=== PATIENT | male | born 1940 | race Caucasian/White ===

== ENCOUNTER 2016-05-21 06:56 | Day surgery (SDC) | payer MEDICARE ==
[~2016-05-21] VITALS: Ht 190.5 cm; Wt 120.2 kg
[~2016-05-21 06:56] MED LIST: ACYCLOVIR800 MG PO; ALDACTONE25 MG PO; ANTIBIOTIC; CARVEDILOL3.125 MG PO; CARVEDILOL6.25 MG PO; CIPRO XR500 MG PO; CIPROFLOXACIN250 MG PO; CIPROFLOXACN250 MG PO; COREG12.5 MG PO; COREG3.125 MG PO; COUMADIN2.5 MG PO; COUMADIN3 MG PO; COUMADIN4 MG PO; DILAUDID 2MG2 MG/TA1 PO; DILTIAZEM120 M2 PO; FUROSEMIDE40 MG PO; HYDROCHLOROT25 MG PO; KEFLEX500 MG PO; LASIX 40 MG40 MG/TAB PO; LISINOPRIL2.5 MG PO; LORTAB 10-325 M1 TAB PO; LORTAB5 PO; LOTENSIN HCT1 TAB PO; LOTRISONE EX; MIRALAX3350 N1 PO; MULTI VIT PO; NAPROSYN500 MG PO; NAPROXEN250 MG PO; NYSTATIN TOP; STERAPRED DS10 MG PO; TAMSULOSIN HCL0.4 MG PO; TERAZOSIN1 MG PO; TET/DIP TOX1 ML IM; TORADOL30 MG/VIAL IM; TRAMADOL HCL50 MG PO; ULTRAM50 M1 PO; WARFARIN3 MG PO; WARFARIN6 MG PO; ZESTRIL/PRINIV2.5 MG PO
[2016-05-21 11:53] VITALS: BP 92/58
== END 2016-05-21 11:50 | disposition home or self-care (01) ==
LOC: ORM 06:56
PROVIDERS: ATTEND Surgery
PROC: 0HB6XZX Excision of Back Skin, External Approach, Diagnostic (ICD-10-PCS; principal; 2016-05-21)
DX: C44.519 Basal cell carcinoma of skin of other part of trunk (principal); I25.10 Atherosclerotic heart disease of native coronary artery without angina pectoris; I48.91 Unspecified atrial fibrillation; Z79.01 Long term (current) use of anticoagulants; Z87.891 Personal history of nicotine dependence

== ENCOUNTER 2016-08-16 10:15 | Emergency (ER) | payer MEDICARE ==
[~2016-08-16] VITALS: Ht 190.5 cm; Wt 100.0 kg
[2016-08-16 10:38] LABS: HEMATOCRIT 35.2 % (39.0-50.0); HEMOGLOBIN 11.2 g/dl (14.0-18.0); IMMATURE GRANULOCYTES 0.5 % (0.0-1.0); MEAN CELL VOLUME 98.3 fL CALC (80.0-100.0); MEAN CORPUSCULAR HGB 31.3 pG CALC (26.0-32.0); MEAN CORPUSCULAR HGB CONC 31.8 g/L CALC (32.0-36.0); NEUT# 4.58 thou/uL (1.82-7.42); RED BLOOD COUNT 3.58 mill/uL (4.70-6.10); RED CELL DISTRI WIDTH 15.9 % (11.5-15.5)
[2016-08-16] MEDS ORDERED: FUROSEMIDE20 MG PO (10:41)
[2016-08-16] MEDS ORDERED: BUMETANIDE1 MG PO (10:42)
[2016-08-16] MEDS ORDERED: COUMADIN3 MG PO (10:45)
[2016-08-16] MEDS ORDERED: COUMADIN4 MG PO (10:46)
[2016-08-16] MEDS ORDERED: ANORO ELLIPTA 61 AER IN (10:46)
[2016-08-16 10:53] LABS: INTERNATIONAL NORMALIZED RATIO 3.4 RATIO (0.7-1.3); PROTHROMBIN TIME 40.2 SECONDS (9.0-12.5)
[2016-08-16 10:58] LABS: ALBUMIN 3.2 g/dL (3.2-5.0); BILIRUBIN, TOTAL 1.5 mg/dL (0.0-1.4); CALCIUM 9.1 mg/dL (8.4-10.2); POTASSIUM 4.9 mmol/l (3.5-5.1); TOTAL PROTEIN 6.7 g/dL (6.3-8.2)
[2016-08-16 11:36] VITALS: BP 113/60
== END 2016-08-16 11:48 | disposition home or self-care (01) ==
LOC: ED 10:15
PROVIDERS: Emergency Medicine
PROC: 0HQLXZZ Repair Left Lower Leg Skin, External Approach (ICD-10-PCS; principal; 2016-08-16)
DX: I97.620 Postprocedural hemorrhage of a circulatory system organ or structure following other procedure (principal); I48.91 Unspecified atrial fibrillation; Y83.9 Surgical procedure, unspecified as the cause of abnormal reaction of the patient, or of later complication, without mention of misadventure at the time of the procedure; Z79.01 Long term (current) use of anticoagulants